=== PATIENT | male | born 1980 | race African-American/Black ===

== ENCOUNTER 2019-03-17 10:29 | Inpatient (IN) | payer OTHER ==
[~2019-03-17] VITALS: Ht 180.3 cm; Wt 86.4 kg
[2019-03-17 11:14] LABS: BASO % 0.7 % (0.0-1.0); HEMATOCRIT 43.1 % (42.0-52.0); HEMOGLOBIN 14.6 g/dl (13.5-17.5); LYMPH # 1.2 10^3/uL (1.5-5.0); LYMPH % 27.5 % (24.0-44.0); MEAN CORPUSCULAR HEMOGLOBIN 27.9 pg (27.0-33.0); MEAN CORPUSCULAR HGB CONC 33.9 g/dl (32.0-36.5); MEAN CORPUSCULAR VOLUME 82.4 fl (80.0-96.0); MONO # 0.4 10^3/uL (0.0-0.8); MONO % 9.8 % (0.0-5.0); NEUTROPHILS # 2.7 10^3/uL (1.5-8.5); NEUTROPHILS % 61.8 % (36.0-66.0); PLATELET COUNT, AUTOMATED 217 10^3/uL (150-450); RED BLOOD COUNT 5.23 10^6/uL (4.30-6.10); WHITE BLOOD COUNT 4.3 10^3/uL (4.0-10.0)
[2019-03-17] MEDS ORDERED: NS 1,000 ML IV ONE ×2 (11:45→12:45)
[2019-03-17] MEDS ORDERED: ONDANSETRON 4MG/2ML VIAL (J2405) IV ONE (11:45)
[2019-03-17 11:54] LABS: ACETAMINOPHEN LEVEL < 2.0 UG/ML (10.0-30.0); ALBUMIN 4.4 GM/DL (3.2-5.2); ALT/SGPT 23 U/L (12-78); BILIRUBIN,DIRECT 0.2 MG/DL (0.0-0.2); BILIRUBIN,TOTAL 0.4 MG/DL (0.2-1.0); BLOOD UREA NITROGEN 9 MG/DL (7-18); CALCIUM LEVEL 9.9 MG/DL (8.5-10.1); CARBON DIOXIDE LEVEL 26 MEQ/L (21-32); CHLORIDE LEVEL 100 MEQ/L (98-107); CPK CREATINE PHOSPHOKINASE 508 U/L (39-308); CREATININE FOR GFR 1.17 MG/DL (0.70-1.30); ETHYL ALCOHOL (ETHANOL) < 0.003 % (0.000-0.010); GLOMERULAR FILTRATION RATE > 60.0 (>60); GLUCOSE, FASTING 120 MG/DL (70-100); POTASSIUM SERUM 3.4 MEQ/L (3.5-5.1); SALICYLATE LEVEL < 1.7 MG/DL (5.0-30.0); SODIUM LEVEL 136 MEQ/L (136-145); TOTAL PROTEIN 8.2 GM/DL (6.4-8.2)
[2019-03-17 12:25] LABS: AMPHETAMINES LEVEL URINE NEGATIVE (NEGATIVE); BARBITURATES URINE NEGATIVE (NEGATIVE); BENZODIAZEPINES URINE NEGATIVE (NEGATIVE); CANNABINOIDS URINE NEGATIVE (NEGATIVE); COCAINE METABOLITE URINE NEGATIVE (NEGATIVE); METHADONE URINE NEGATIVE (NEGATIVE); OPIATES URINE NEGATIVE (NEGATIVE); PHENCYCLIDINE URINE NEGATIVE (NEGATIVE)
[2019-03-17 12:29] LABS: MAGNESIUM LEVEL 1.6 MG/DL (1.8-2.4)
[2019-03-17] MEDS ORDERED: MAG SULF 1GM/100ML (MAG RUN) 1 GM in IV 1 EA IV ONE (13:00)
[2019-03-17] MEDS ORDERED: ONDANSETRON 4MG/2ML VIAL (J2405) IV PRN (14:00)
--- NOTE | 2019-03-17 14:13 | HPEPDOC ---
General Date of Admission 03/17/19 Date of Service: Mar 17, 2019 Chief Complaint The patient is a 38-year-old male admitted with a reason for visit of Overdose. History of Present Illness This is a 38 years old -[place] man from [facility] with a history of substance abuse was brought to ED as patient wanted a chem himself and donate his organs. Patient took at least 30 tablets of naltrexone 50 mg and Effexor 150 mg . During my examination, patient is sedated in ED, unable to get medical history of present desires on this calling his name but then drifts back to sleep, in no apparent cardiorespiratory distress Allergies Coded Allergies: No Known Allergies (Unverified , 03/17/19) Past Medical History Medical History Depression and substance abuse Surgical History None Social History * Smoker: Denies Alcohol: heavy Drugs: other (unknown drugs) A-FIB/CHADSVASC A-FIB History Current/History of A-Fib/PAF?: No Review of Systems Constitutional: Reports: Other (, unable to obtained review of systems as patient is sedated) Physical Examination Eye Exam: Positive: PERRLA ENT Exam: Positive: Atraumatic, Mucous membr. moist/pink Neck Exam: Positive: Supple Chest Exam: Positive: Clear to auscultation, Normal air movement Heart Exam: Positive: Rate Normal, Normal S1, Normal S2 Abdomen Exam: Positive: Soft, Tenderness Extremity Exam: Positive: Normal pulses Skin Exam: Positive: Nl turgor and temperature Neuro Exam: Positive: Other (, unable to neuro exam but moves all his extremities) Psych Exam: Positive: Other (. Unable to psych exam secondary to sedation) Vital Signs Vital Signs Date Time Temp Pulse Resp B/P (MAP) Pulse Ox O2 Delivery O2 Flow Rate FiO2 03/17/19 13:30 97 160/82 (108) 97 03/17/19 10:43 97.9 18 Room Air Laboratory Data Labs 24H Laboratory Tests 2 03/17/19 11:01: Immature Granulocyte % (Auto) 0.2, Neutrophils (%) (Auto) 61.8, Lymphocytes (%) (Auto) 27.5, Monocytes (%) (Auto) 9.8H, Eosinophils (%) (Auto) 0.0, Basophils (%) (Auto) 0.7, Neutrophils # (Auto) 2.7, Lymphocytes # (Auto) 1.2L, Monocytes # (Auto) 0.4, Eosinophils # (Auto) 0.0, Basophils # (Auto) 0.0, Nucleated Red Blood Cells % (auto) 0.0, Anion Gap 10, Glomerular Filtration Rate > 60.0, Calcium Level 9.9, Magnesium Level 1.6L, Total Bilirubin 0.4, Direct Bilirubin 0.2, Aspartate Amino Transf (AST/SGOT) 32, Alanine Aminotransferase (ALT/SGPT) 23, Alkaline Phosphatase 56, Total Creatine Kinase 508H, Total Protein 8.2, Albumin 4.4, Albumin/Globulin Ratio 1.16, Thyroid Stimulating Hormone (TSH) 2.550, Salicylates Level < 1.7L, Acetaminophen Level < 2.0L, Ethyl Alcohol Level < 0.003 03/17/19 11:45: Urine Opiates Screen NEGATIVE, Urine Methadone Screen NEGATIVE, Urine Nelida turates Screen NEGATIVE, Urine Phencyclidine Screen NEGATIVE, Urine Amphetamines Screen NEGATIVE, Urine Benzodiazepines Screen NEGATIVE, Urine Cocaine Metabolite Screen NEGATIVE, Urine Cannabinoids Screen NEGATIVE 03/17/19 13:14: Bedside Glucose (Misc Panel) 96 CBC/BMP Laboratory Tests 03/17/19 11:01 Problems (1) Overdose Status: Acute Problem Text: Patient took approximately 30 tablets of naltrexone 50 mg and Effexor 150 mg. Patient is clinically stable vital signs are stable. His laboratory work including CBC, CMP are normal except potassium is 3.4 CK is 508 and alcohol less than 0.003 Poison control was called and was advised to monitor patient for 12 hours before discharge Patient will be admitted to ICU for further care Cardiac and continuous pulse ox monitor IV fluid normal saline with 20 mEq of KCl at 100 mL per hour A.m. labs EKG in a.m. Will request psych consult in a.m. to transfer patient to inpatient mental health mental health unit DVT prophylaxis with Lovenox Diet regular Activity as tolerated (2) Suicidal ideation Status: Acute Problem Text: Will call psychiatry consult in a.m. and transfer patient to inpatient mental health unit further intervention as per psych (3) Depression Status: Chronic Problem Text: As per psych Plan / VTE VTE Prophylaxis Ordered?: Yes YOANA JEFFERSON MD Mar 17, 2019 14:13
[2019-03-17] MEDS ORDERED: NALT50TA4 PO (14:15)
[2019-03-17] MEDS ORDERED: VENL150C43 PO (14:15)
[2019-03-17 15:02] VITALS: BP 165/88
[2019-03-17] MEDS: KCL 20MEQ in NS 1000ML 1,000 ML IV SCH (15:07)
[2019-03-17 16:00] VITALS: BP 157/84
[2019-03-17 17:00] VITALS: BP 160/86
[2019-03-17 20:00] VITALS: BP 148/89
[2019-03-17 23:49] VITALS: BP 156/92
[2019-03-18] VITALS (14 sets, daily range): BP systolic 120–164; BP diastolic 58–97
[2019-03-18] MEDS: LORazepam 2 MG/ML VIAL (J2060) IV PRN ×2 (00:19→20:27)
[2019-03-18] MEDS: KCL 20MEQ in NS 1000ML 1,000 ML IV SCH (00:20)
[2019-03-18] MEDS ORDERED: levETIRAcetam INJection 1,000 MG in D5W 100 ML IV ONE (00:30)
[2019-03-18] MEDS ORDERED: LORazepam 2 MG/ML VIAL (J2060) IV PRN (00:30)
[2019-03-18 04:57] LABS: HEMATOCRIT 45.1 % (42.0-52.0); HEMOGLOBIN 14.6 g/dl (13.5-17.5); MEAN CORPUSCULAR HEMOGLOBIN 26.8 pg (27.0-33.0); MEAN CORPUSCULAR HGB CONC 32.4 g/dl (32.0-36.5); MEAN CORPUSCULAR VOLUME 82.9 fl (80.0-96.0); PLATELET COUNT, AUTOMATED 194 10^3/uL (150-450); RED BLOOD COUNT 5.44 10^6/uL (4.30-6.10); WHITE BLOOD COUNT 8.4 10^3/uL (4.0-10.0)
[2019-03-18 05:25] LABS: ALBUMIN 3.6 GM/DL (3.2-5.2); ALT/SGPT 19 U/L (12-78); BILIRUBIN,TOTAL 0.7 MG/DL (0.2-1.0); BLOOD UREA NITROGEN 6 MG/DL (7-18); CALCIUM LEVEL 8.2 MG/DL (8.5-10.1); CARBON DIOXIDE LEVEL 27 MEQ/L (21-32); CHLORIDE LEVEL 106 MEQ/L (98-107); CPK CREATINE PHOSPHOKINASE 416 U/L (39-308); GLOMERULAR FILTRATION RATE > 60.0 (>60); GLUCOSE, FASTING 103 MG/DL (70-100); MAGNESIUM LEVEL 2.3 MG/DL (1.8-2.4); POTASSIUM SERUM 3.6 MEQ/L (3.5-5.1); SODIUM LEVEL 139 MEQ/L (136-145); TOTAL PROTEIN 7.6 GM/DL (6.4-8.2)
[2019-03-18] MEDS: ENOXAPARIN 40 MG/0.4 ML SYRINGE (J1650) SC SCH (08:11)
[2019-03-18] MEDS: ACETAMINOPHEN TAB 650MG DOSE (2X325MG) PO PRN ×2 (08:46→16:44)
--- NOTE | 2019-03-18 10:23 | IPNPDOC ---
Subjective Date Seen The patient was seen on 03/18/19. Subjective Chief Complaint/HPI Patient is comfortable in no apparent distress. Offers no new complaints. [facility] called and informed that patient is a human coronavirus positive on nasal swab on his last visit from urgent care. Patient is asymptomatic. No flulike symptoms, no body aches. No fever, infectious control was informed and they've seen the patient but did not recommend any preventative measures and is a human type coronavirus. General: Denies: ROS Unobtainable, Chills, Night Sweats, Fatigue, Malaise, Normal Appetite, Other Symptoms Constitutional: Denies: Chills, Fever, Malaise, Night Sweats, Weakness, Fat igue, Weight Loss, Lethargy, Other Eyes: Denies: Pain, Vision change, Conjunctivae inflammation, Eyelid inflammation, Redness, Other Pulmonary: Denies: Dyspnea, Cough, Pleuritic Chest Pain, Other Symptoms Cardiovascular: Denies: Chest Pain, Palpitations, Orthopnea, Paroxysmal Noc. Dyspnea, Edema, Lt Headedness, Other Symptoms Gastrointestinal: Denies: Nausea, Vomiting, Abdominal Pain, Diarrhea, Constipation, Melena, Hematochezia, Other Symptoms Musculoskeletal: Denies: Neck Pain, Back Pain, Shoulder Pain, Arm Pain, Hand Pain, Leg Pain, Foot Pain, Joint Pain, Muscle Pain, Spasms, Other Symptoms Neurological: Denies: Weakness, Numbness, Incoordination, Change in speech, Confusion, Seizures, Other Symptoms Objective Physical Examination ENT Exam: Positive: Atraumatic, Mucous membr. moist/pink Neck Exam: Positive: Supple Chest Exam: Positive: Clear to auscultation, Normal air movement Heart Exam: Positive: Rate Normal, Normal S1, Normal S2 Abdomen Exam: Positive: Normal bowel sounds, Soft, Tenderness Extremity Exam: Positive: Normal pulses Skin Exam: Positive: Nl turgor and temperature Neuro Exam: Positive: Other (, unable to neuro exam but moves all his extremities) Psych Exam: Positive: Other (. Unable to psych exam secondary to sedation) Assessment /Plan Problems (1) Suicidal ideation Status: Acute Problem Text: Dr. Bradley was called and discussed case discussed with her Patient has committed a suicidal attempt and possibly will be transferred to inpatient mental health unit for further care From the psych meds as per Dr. Bradley (2) Depression Status: Chronic Problem Text: As per psych (3) Overdose Status: Acute Problem Text: Patient was a placement ICU for observation Patient is clinically stable in no apparent distress and medically clear for discharge to inpatient mental health unit No further intervention at the present time, QTC (405) essentially within normal limits Plan/VTE VTE Prophylaxis Ordered?: Yes VS, I&O, 24H, Fishbone Vital Signs/I&O Vital Signs Date Time Temp Pulse Resp B/P (MAP) Pulse Ox O2 Delivery O2 Flow Rate FiO2 03/18/19 09:01 102 141/79 (99) 91 Room Air 03/18/19 08:00 100.7 20 03/18/19 00:22 2.0 I&O- Last 24 Hours up to 6 AM 03/18/19 06:00 Intake Total 2300 ml Output Total 1425 ml Balance 875 ml Laboratory Data 24H LABS Laboratory Tests 2 03/17/19 11:01: Immature Granulocyte % (Auto) 0.2, Neutrophils (%) (Auto) 61.8, Lymphocytes (%) (Auto) 27.5, Monocytes (%) (Auto) 9.8H, Eosinophils (%) (Auto) 0.0, Basophils (%) (Auto) 0.7, Neutrophils # (Auto) 2.7, Lymphocytes # (Auto) 1.2L, Monocytes # (Auto) 0.4, Eosinophils # (Auto) 0.0, Basophils # (Auto) 0.0, Nucleated Red Blood Cells % (auto) 0.0, Anion Gap 10, Glomerular Filtration Rate > 60.0, Calcium Level 9.9, Magnesium Level 1.6L, Total Bilirubin 0.4, Direct Bilirubin 0.2, Aspartate Amino Transf (AST/SGOT) 32, Alanine Aminotransferase (ALT/SGPT) 23, Alkaline Phosphatase 56, Total Creatine Kinase 508H, Total Protein 8.2, Albumin 4.4, Albumin/Globulin Ratio 1.16, Thyroid Stimulating Hormone (TSH) 2.550, Salicylates Level < 1.7L, Acetaminophen Level < 2.0L, Ethyl Alcohol Level < 0.003 03/17/19 11:45: Urine Opiates Screen NEGATIVE, Urine Methadone Screen NEGATIVE, Urine Barbiturates Screen NEGATIVE, Urine Phencyclidine Screen NEGATIVE, Urine Amphetamines Screen NEGATIVE, Urine Benzodiazepines Screen NEGATIVE, Urine Cocaine Metabolite Screen NEGATIVE, Urine Cannabinoids Screen NEGATIVE 03/17/19 13:14: Bedside Glucose (Misc Panel) 96 03/18/19 00:19: Bedside Glucose (Misc Panel) 89 03/18/19 04:47: Nucleated Red Blood Cells % (auto) 0.0, Anion Gap 6L, Glomerular Filtration Rate > 60.0, Calcium Level 8.2#L, Magnesium Level 2.3, Total Bilirubin 0.7#, Aspartate Amino Transf (AST/SGOT) 22, Alanine Aminotransferase (ALT/SGPT) 19, Alkaline Phosphatase 52, Total Creatine Kinase 416H, Total Protein 7.6, Albumin 3.6, Albumin/Globulin Ratio 0.90L CBC/BMP Laboratory Tests 03/17/19 11:01 03/18/19 04:47 YOANA JEFFERSON MD Mar 18, 2019 10:23
[2019-03-18] MEDS ORDERED: levETIRAcetam INJection 500 MG in D5W MINI-BAG PLUS 100 ML IV SCH (12:00)
--- NOTE | 2019-03-18 14:51 | ECGEPIP ---
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
--- NOTE | 2019-03-18 15:58 | MHCRPDOC ---
[facility] Consultation Consultation DATE OF CONSULTATION: 03/18/19 CONSULTATION REQUESTED BY: Dr. Jeffery REASON FOR CONSULTATION: s/p OD RELEVANT HISTORY: Per medical admit note: "This is a 38 years old -French man from [facility] with a history of substance abuse was brought to ED as patient wanted a kill himself and donate his organs. Patient took at least 30 tablets of naltrexone 50 mg and Effexor 150 mg. During my examination, patient is sedated in ED, unable to get medical history of present desires on this calling his name but then drifts back to sleep, in no apparent cardiorespiratory distress" Pt seen and states he took a handful of pills as an OD to harm himself but not kill himself b/c he is upset that he is being Chaptered out of the and loosing his benefits he was hoping to give his children after he got 2 DUIs even thought he passed SUDSE within [facility] and states he's been sober since. He denies SI, SI intent or plan currently. States he was prescribed pills at [facility] (effexor xr and naltrexone) that he stopped taking several months ago and does not want to restart them. He is evasive at times due to what appears disinterest with being interviewed. Admits he regrets his OD. Agrees to only attend groups with admission [facility] and states he doesn't want any meds and doesn't think they help. Denies HI, hallucinations, delusions. PAST PSYCHIATRIC HISTORY: alcohol abuse (used to drink a pint of liquor daily, passed SUDSE in May he states) prescribed effexor xr and naltrexone outpatient denies history of SA PAST MEDICAL HISTORY: human coronavirus positive but asymptomatic according to medical team FAMILY HISTORY: noncontributory PERSONAL AND SOCIAL HISTORY: The patient was born and raised in [facility] came [place] the [place] after he his who is a [place] citizen Resides in: [place] Marital Status: with 2 kids that live with is ex- in [place] Education: college education in finance, wants to work for the [employer] in the future Employment: [employer] SUBSTANCE ABUSE HISTORY: Alcohol - used to drink a pint of liquor daily, passed SUDSE in May he states, and sober since (bal neg on admission) LEGAL HISTORY: 2 DUIs in past MENTAL STATUS EXAMINATION: Patient is a 38-year old male, who is lying in bed in hospital gown uninterested in talking with me and attempting to be evasive at times Speech is soft, reg rate Language skills are Kosovan Accent but good Thought processes including: linear, logical Thought content: Denies SI/HI, hallucinations, delusions. Abstract reasoning, and computation: intact Description of associations: appropriate Description of abnormal or psychotic thoughts: denies Judgment: poor Insight: poor Orientation to x3 Recent and remote memory: intact Attention span and concentration: good Language: appropriate Fund of knowledge:average Mood: "ok" Affect: dysthymic, uninterested DIAGNOSIS: 1. Depression Unspecified 2. hx alcohol use d/o 3. r/o antisocial personality d/o PLAN: 1. admit to [facility] Vital Signs Vital Signs Date Time Temp Pulse Resp B/P (MAP) Pulse Ox O2 Delivery O2 Flow Rate FiO2 03/18/19 09:01 102 141/79 (99) 91 Room Air 03/18/19 08:00 100.7 20 03/18/19 00:22 2.0 Laboratory Data 24H Labs Laboratory Tests 2 03/18/19 00:19: Bedside Glucose (Misc Panel) 89 03/18/19 04:47: Nucleated Red Blood Cells % (auto) 0.0, Anion Gap 6L, Glomerular Filtration Rate > 60.0, Calcium Level 8.2#L, Magnesium Level 2.3, Total Bilirubin 0.7#, Aspartate Amino Transf (AST/SGOT) 22, Alanine Aminotransferase (ALT/SGPT) 19, Alkaline Phosphatase 52, Total Creatine Kinase 416H, Total Protein 7.6, Albumin 3.6, Albumin/Globulin Ratio 0.90L, Prolactin 7.2 Home Medications Current Medications Current Medications Medications (Trade) Dose Ordered Sig/Cheli Route PRN Reason Start Time Stop Time Status Last Admin Dose Admin Acetaminophen (Tylenol Tab) 650 mg Q6HP PRN PO PAIN / FEVER 03/18/19 08:45 03/18/19 08:46 Enoxaparin Sodium (Lovenox) 40 mg DAILY SC 03/18/19 09:00 03/18/19 08:11 Home Med (Med Rec Complete!) ASDIRECTED XX 03/17/19 14:15 03/17/19 14:19 DC Levetiracetam 500 mg/Dextrose 105 ml @ 420 mls/hr Q12H IV 03/18/19 12:00 03/18/19 10:25 DC Lorazepam (Ativan) 1 mg Q6HP PRN IV ANXIETY/AGITATION 03/17/19 14:00 03/18/19 00:19 Lorazepam (Ativan) 2 mg Q1HP PRN IV SEIZURES 03/18/19 00:30 Ondansetron HCl (ZOFRAN INJection) 4 mg Q4HP PRN IV NAUSEA OR VOMITING 03/17/19 14:00 Potassium Chloride/Sodium Chloride 1,000 ml @ 100 mls/hr Q10H IV 03/17/19 14:00 03/18/19 10:24 DC 03/18/19 00:20 Scheduled Naltrexone HCl (Naltrexone HCl) 50 Mg Tablet, 50 MG PO DAILY, (Reported) Venlafaxine HCl (Venlafaxine HCl ER) 150 Mg Cap.er.24h, 150 MG PO DAILY, (Reported) Allergies Coded Allergies: No Known Allergies (Unverified , 03/17/19) LON STEVENS DO Mar 18, 2019 2:14 pm
[2019-03-18] MEDS ORDERED: ACET1TAB55 PO (16:30)
--- NOTE | 2019-03-18 16:35 | DS.PDOC ---
Discharge Summary General Date of Admission Mar 17, 2019 at 13:47 Date of Discharge 03/18/19 Discharge Summary PROCEDURES PERFORMED DURING STAY: None. ADMITTING DIAGNOSES: 1. Suicidal attempt, depression, prescription drug overdose. DISCHARGE DIAGNOSES: 1. Suicidal attempt, depression, prescription drug overdose. COMPLICATIONS/CHIEF COMPLAINT: Depression Overdose Suicidal Ideation. HISTORY OF PRESENT ILLNESS: This is a 38 years old -[place] man from [facility] with a history of substance abuse was brought to ED as patient wanted a chem himself and donate his organs. Patient took at least 30 tablets of naltrexone 50 mg and Effexor 150 mg . During my examination, patient is sedated in ED, unable to get medical history of present desires on this calling his name but then drifts back to sleep, in no apparent cardiorespiratory distress. HOSPITAL COURSE: Patient was admitted to MICU for close observation. He was started on IV fluids, Ativan when necessary, Tylenol when necessary, Zofran when necessary. Pain control was called from a emergency room and had advised 12 hours of observation. Patient's QTC was 409 on his last EKG done this morning. Patient remained asymptomatic psych consult with Dr. Bradley was called, patient was seen by Dr. Bradley and recommended admission to inpatient mental health unit. All paperwork has been completed and patient will be discharged to inpatient mental health unit for further psychiatric care.. DISCHARGE MEDICATIONS: Please see below. ALLERGIES: Please see below. PHYSICAL EXAMINATION ON DISCHARGE: VITAL SIGNS: Please see below. GENERAL: Within normal limits HEENT: Gill extraocular muscles intact NECK: Supple, no JVD, no lymphadenopathy CARDIOVASCULAR EXAMINATION: S1, S2, regular RESPIRATORY EXAMINATION: Clear to A&P ABDOMINAL EXAMINATION: , Soft, nontender, bowel sounds and organomegaly EXTREMITIES: No clubbing, cyanosis, edema SKIN: Within normal limits NEUROLOGICAL EXAMINATION: . No focal motor sensory deficit PSYCHIATRIC EXAMINATION: Within normal limits LABORATORY DATA: Please see below. IMAGING: None PROGNOSIS: Good ACTIVITY: As tolerated. DIET: As tolerated DISCHARGE PLAN: As tolerated DISPOSITION: . [facility] DISCHARGE INSTRUCTIONS: 1. As per discharge instructions. ITEMS TO FOLLOWUP ON ON OUTPATIENT: 1. Follow with inpatient psych in [facility]. DISCHARGE CONDITION: Stable. TIME SPENT ON DISCHARGE: 38 minutes. Vital Signs/I&Os Vital Signs Date Time Temp Pulse Resp B/P (MAP) Pulse Ox O2 Delivery O2 Flow Rate FiO2 03/18/19 14:00 99.5 2/5/20 09:01 102 141/79 (99) 91 Room Air 03/18/19 08:00 20 03/18/19 00:22 2.0 I&O- Last 24 Hours up to 6 AM 03/18/19 06:00 Intake Total 2300 ml Output Total 1425 ml Balance 875 ml Laboratory Data Labs 24H Laboratory Tests 2 03/18/19 00:19: Bedside Glucose (Misc Panel) 89 03/18/19 04:47: Nucleated Red Blood Cells % (auto) 0.0, Anion Gap 6L, Glomerular Filtration Rate > 60.0, Calcium Level 8.2#L, Magnesium Level 2.3, Total Bilirubin 0.7#, Aspartate Amino Transf (AST/SGOT) 22, Alanine Aminotransferase (ALT/SGPT) 19, Alkaline Phosphatase 52, Total Creatine Kinase 416H, Total Protein 7.6, Albumin 3.6, Albumin/Globulin Ratio 0.90L, Prolactin 7.2 CBC/BMP Laboratory Tests 03/18/19 04:47 FSBS Laboratory Tests Test 03/18/19 00:19 Range/Units Bedside Glucose (Misc Panel) 89 70-105 MG/DL Discharge Medications Scheduled PRN Acetaminophen (Acetaminophen) 325 Mg Tablet, 650 MG PO Q6HP PRN for PAIN / FEVER Allergies Coded Allergies: No Known Allergies (Unverified , 03/17/19) YOANA JEFFERSON MD Mar 18, 2019 16:35
[2019-03-19 04:43] VITALS: BP 138/89
[2019-03-19 08:00] VITALS: BP 161/91
[2019-03-19] MEDS: ENOXAPARIN 40 MG/0.4 ML SYRINGE (J1650) SC SCH (08:11)
[2019-03-19] MEDS: ACETAMINOPHEN TAB 650MG DOSE (2X325MG) PO PRN (08:12)
--- NOTE | 2019-03-20 19:56 | ECGEPIP ---
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
== END 2019-03-19 16:25 | DRG 918 ==
LOC: M ED 10:29 → EDBD 10:29 → M ED INP 13:47 → ENRESERVDT 14:00 → ENRESERVTM 14:00 → M ICU 14:55
PROVIDERS: ADMIT Internal Medicine; ATTEND Internal Medicine
DX: T50.7X2A Poisoning by analeptics and opioid receptor antagonists, intentional self-harm, initial encounter (principal); Z79.899 Other long term (current) drug therapy; F32.9 Major depressive disorder, single episode, unspecified

== ENCOUNTER 2019-03-18 16:11 | Inpatient (IN) | payer OTHER ==
[~2019-03-18] VITALS: Ht 180.3 cm; Wt 84.9 kg
[~2019-03-18 16:11] MED LIST: NALT50TA4 PO; VENL150C43 PO
[2019-03-18] MEDS ORDERED: ACET1TAB55 PO (16:30)
[2019-03-18] MEDS ORDERED: MAALOX 30 ML SUSP *UDC PO PRN (16:45)
[2019-03-18] MEDS ORDERED: MOM 30ML SUSPENSION UDC PO PRN (16:45)
[2019-03-18] MEDS ORDERED: NICOTINE 21MG/24HR 1 EA TRANSDERMAL TD PRN (16:45)
[2019-03-19] MEDS ORDERED: MAALOX 30 ML SUSP *UDC PO PRN (16:15)
[2019-03-19] MEDS ORDERED: MOM 30ML SUSPENSION UDC PO PRN (16:15)
[2019-03-19] MEDS ORDERED: traZODone 50 MG TAB PO PRN (16:15)
[2019-03-19 16:30] VITALS: BP 130/92
[2019-03-19] MEDS: ACETAMINOPHEN TAB 650MG DOSE (2X325MG) PO PRN (22:25)
[2019-03-20 06:01] VITALS: BP 114/88
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
--- NOTE | 2019-03-20 13:53 | HPEPDOC ---
General Date of Admission Mar 19, 2019 at 16:30 Date of Service: Mar 20, 2019 Attending Physician: MIMA MOORE MD Chief Complaint The patient is a 38-year-old male admitted with a reason for visit of Unspecified Depression. Source: Patient Exam Limitations: No limitations Timing/Duration: Other Associated Symptoms: Other History of Present Illness 38 yo man who is active in the with a remote history of a traumatic fall c/b occasional headaches response to Tylenol and patient reported recent history of diagnosis of pericarditis in [facility]? for which he was placed on a medication that begins with C? (colchicine?) with no recent history of chest pain, palpitations, SOB or extremity swelling, as well as chart history of substance use disorder (patient denies) who is admitted to the [facility] after an intentional overdose of naltrexone and Effexor in the setting of social stressors. He otherwise reports no other significant medical. Initial evaluation included, normal CBC, CMP, CK is 508 and alcohol less than 0.003. Poison control was called and was advised to monitor patient for 12 hours before discharge and he was briefly admitted for monitoring in the ICU and given IVF fluids after which he was evaluated and admitted to the [facility]. Home Medications Scheduled PRN Acetaminophen (Acetaminophen) 325 Mg Tablet, 650 MG PO Q6HP PRN for PAIN / FEVER Allergies Coded Allergies: No Known Allergies (Unverified , 03/17/19) Past Medical History Medical History [facility] Depression chronic headaches Surgical History None Family History Significant Family History: No pertinent family hx Social History * Smoker: Denies Alcohol: occationally Drugs: denies Recent Travel/Sick Contacts: Denies: Recent travel, Recent sick contacts Psychosocial History: Depression A-FIB/CHADSVASC A-FIB History Current/History of A-Fib/PAF?: No Current PO Anticoag Therapy: No Age/Risk Factor Scoring CHADSVASC: CHADSVASC Response (Comments) Value Age Risk Factor Age < 65 years old 0 Gender Risk Factor Male 0 Hx of CHF No 0 Hx of HTN No 0 Hx of Stroke/TIA/or VTE No 0 Hx of Diabetes No 0 Hx of Vascular Disease No 0 Total 0 Treatment Treatment ordered: NONE Reason Anticoagulant not given: Not indicated/[id number] Review of Systems Constitutional: Denies: Chills, Fever, Night Sweats Eyes: Denies: Pain, Vision change ENT: Denies: Head Aches, Ear Pain, Dysphagia Skin: Denies: Rash, Lesions, Breakdown Pulmonary: Denies: Dyspnea, Cough Cardiovascular: Denies: Chest Pain, Palpitations, Orthopnea, Paroxysmal Noc. Dyspnea, Lt Headedness Gastrointestinal: Denies: Nausea, Vomiting, Abdominal Pain, Diarrhea Genitourinary: Denies: Dysuria, Frequency, Incontinence, Retention Hematologic: Denies: Bruising, Bleeding Excessively Endocrine: Denies: Polydipsia, Polyphagia, Polyuria, Heat Intolerance, Cold Intolerance, Other Endocrine Sx Musculoskeletal: Denies: Neck Pain, Back Pain, Shoulder Pain, Arm Pain, Hand Pain, Leg Pain, Foot Pain, Joint Pain, Muscle Pain, Spasms, Other Symptoms Neurological: Denies: Weakness, Numbness, Change in speech, Confusion Psych: Reports: Mood Normal; Denies: Depression, Memory Issues Physical Examination General Exam: Positive: Alert, No Acute Distress Eye Exam: Positive: PERRLA, Conjunctiva & lids normal, EOMI; Negative: Sclera icteric ENT Exam: Positive: Atraumatic, Mucous membr. moist/pink, Pharynx Normal Neck Exam: Positive: Supple; Negative: JVD, thyromegaly Chest Exam: Positive: Clear to auscultation, Normal air movement Heart Exam: Positive: Rate Normal, Regular Rhythm, Normal S1, Normal S2; Negative: Murmurs, Rubs Telemetry: Positive: No significant arrhythmia Abdomen Exam: Positive: Normal bowel sounds, Soft; Negative: Tenderness, Hepatospenomegaly Extremity Exam: Positive: Normal pulses; Negative: Clubbing, Cyanosis, Edema Skin Exam: Positive: Nl turgor and temperature; Negative: Breakdown, Lesion Neuro Exam: Positive: Normal Gait, Normal Speech, Cranial Nerves 3-12 NL Psych Exam: Positive: Mental status NL, Mood NL, Oriented x 3 Vital Signs Vital Signs Date Time Temp Pulse Resp B/P (MAP) Pulse Ox O2 Delivery O2 Flow Rate FiO2 03/20/19 06:01 99.3 74 18 114/88 (97) 03/19/19 16:30 95 Assessment/Plan 38 yo man who is active in the with a remote history of a traumatic fall c/b occasional headaches response to Tylenol and patient reported recent history of diagnosis of pericarditis in [facility]? for which he was placed on a medication that begins with C? (colchicine?) with no recent history of chest pain, palpitations, SOB or extremity swelling, as well as chart history of substance use disorder (patient denies) who is admitted to the [facility] after an intentional overdose of naltrexone and Effexor in the setting of social stressors, now admitted to the [facility] with medicine consulted for medical evaluation. Plan: Chronic headaches: -Continue PRN tylenol per baseline, already ordered. -Recommended for patient to discuss his headaches with his PCP to investigate possible TBI since they began after his remote traumatic fall Intentional overdose: -Was monitored in the ICU and cleared, clinically stable at this time -Psychiatry managing depression and suicidality Prior history of pericarditis per patient: -Unclear if colchicine was the medication he was on and for long he was on it and the target time frame. For now asymptomatic with normal exam without rubs or murmurs and euvolemic while on PRN tylenol and ibuprofen. -may follow up with PCP as an outpatient Medicine will sign off at this time. Plan / VTE VTE Prophylaxis Ordered?: No VTE Exclusion Mechanical Proph: Low Risk for VTE VTE Exclusion Pharmacological: At Low Risk for VTE MIMA MOORE MD Mar 20, 2019 13:53
[2019-03-20 16:21] VITALS: BP 142/84
[2019-03-20] MEDS: ACETAMINOPHEN TAB 650MG DOSE (2X325MG) PO PRN (17:16)
[2019-03-20] MEDS: PRAZOSIN 1 MG CAP PO SCH (20:54)
[2019-03-20] MEDS: traZODone 50 MG TAB PO PRN (20:54)
[2019-03-20] MEDS: QUEtiapine FUMARATE 25 MG TAB PO SCH (20:54)
[2019-03-20] MEDS: IBUPROFEN 400 MG TAB PO PRN (20:55)
[2019-03-21 05:52] VITALS: BP 152/91
--- NOTE | 2019-03-21 09:38 | MHIPNPDOC ---
[facility] Progress Note Progress Note DATE OF SERVICE: 03/21/19 HISTORY: The patient a 38-year-old man presents after a suicide attempt overdose on a combination of effexor and naltrexone after reportedly being told that he might be from the . He has multiple stressors and reports that for the last several days, he is depressed, hopeless and lost interest and very little motivation to engage. The patient reports a history of trauma when he lived [place]. Reports hypervigilance, intrusive thoughts, nightmares and partial flashbacks as well as negative cognition. The patient reports that he feels that he had survived for "a reason," struggles with significant depression for the last several days prior to OD. VITAL SIGNS: See below. NEW TEST RESULTS:See below. CURRENT MEDICATIONS: See below. MENTAL STATUS EXAMINATION: General: Well dressed with good hygiene Speech: Somewhat monotone at times. Thought processes: Linear and logical MSK: Smooth and coordinated gait, no signs of tremors or involuntary orofacial movements Thought content: Hopelessness. Abstract reasoning, and computation: Intact Description of associations: Intact Description of abnormal or psychotic thoughts: Denies any suicidal or homicidal ideation. Denies any auditory or visual hallucinations. Does not appear to be responding to internal stimuli. Does not appear to be endorsing any bizarre or paranoid ideation. Judgment: Poor. Insight: Poor. Orientation: Alert and orientated 3 Cognition: Grossly normal Recent and remote memory: Intact Attention span and concentration: Intact Fund of knowledge: Adequate Mood: "ok" Affect: Severely dysthymic with a restricted range. DIAGNOSES: PTSD, chronic. MDD, mild to severe. Alcohol use disorder, moderate. ASSESSMENT:Pt seen and states that his mood is "ok" and that it's improving slowly with treatment. Continues to regret his recent OD. States he slept well last night. Feels he is tolerating his medications and they're beneficial. He is attending groups and finding them helpful. He denies SI/HI, hallucinations, delusions. Pt feels safe here. MANAGEMENT PLAN: continue Dr. Chu's plan. TIME SPENT: 30 minutes. Vital Signs Vital Signs Date Time Temp Pulse Resp B/P (MAP) Pulse Ox O2 Delivery O2 Flow Rate FiO2 03/21/19 05:52 98.2 62 16 152/91 (111) 03/19/19 16:30 95 Current Medications Current Medications Medications (Trade) Dose Ordered Sig/Cheli Route PRN Reason Start Time Stop Time Status Last Admin Dose Admin Acetaminophen (Tylenol Tab) 650 mg Q6HP PRN PO HEADACHE or DISCOMFORT 03/19/19 16:15 03/20/19 17:16 Al Hydrox/Mg Hydrox/Simethicone (Mylanta) 30 ml Q4HP PRN PO HEARTBURN/INDIGESTION 03/18/19 16:45 Al Hydrox/Mg Hydrox/Simethicone (Mylanta) 30 ml Q4HP PRN PO HEARTBURN/INDIGESTION 03/19/19 16:15 UNV Ibuprofen (Advil) 400 mg Q6HP PRN PO PAIN 03/18/19 16:45 03/20/19 20:55 Magnesium Hydroxide (Milk Of Magnesia) 30 ml DAILYPRN PRN PO CONSTIPATION 03/18/19 16:45 Magnesium Hydroxide (Milk Of Magnesia) 30 ml DAILYPRN PRN PO CONSTIPATION 03/19/19 16:15 UNV Nicotine (Nicoderm Cq 21mg) 1 patch DAILYPRN PRN TD smoking cesssation 03/18/19 16:45 Prazosin HCl (Minipress) 1 mg QHS PO 03/20/19 21:00 03/20/19 20:54 Quetiapine Fumarate (SEROquel) 25 mg QHS PO 03/20/19 21:00 03/20/19 20:54 Trazodone HCl (Desyrel) 50 mg QHSP PRN PO INSOMNIA 03/18/19 16:45 03/20/19 20:54 Trazodone HCl (Desyrel) 50 mg QHSP PRN PO INSOMNIA 03/19/19 16:15 UNV Allergies Coded Allergies: No Known Allergies (Unverified , 03/17/19) LON STEVENS DO Mar 21, 2019 9:38 am
[2019-03-21] MEDS: ACETAMINOPHEN TAB 650MG DOSE (2X325MG) PO PRN ×2 (13:01→21:57)
[2019-03-21 16:14] VITALS: BP 140/82
[2019-03-21] MEDS: QUEtiapine FUMARATE 25 MG TAB PO SCH (22:40)
[2019-03-21] MEDS: PRAZOSIN 1 MG CAP PO SCH (22:41)
[2019-03-21] MEDS: IBUPROFEN 400 MG TAB PO PRN (23:44)
[2019-03-22 06:18] VITALS: BP 130/88
[2019-03-22] MEDS: ACETAMINOPHEN TAB 650MG DOSE (2X325MG) PO PRN (08:18)
--- NOTE | 2019-03-22 09:16 | MHIPNPDOC ---
[facility] Progress Note Progress Note DATE OF SERVICE: 03/22/19 HISTORY:The patient a 38-year-old man presents after a suicide attempt overdose on a combination of effexor and naltrexone after reportedly being told that he might be from the . He has multiple stressors and reports that for the last several days, he is depressed, hopeless and lost interest and very little motivation to engage. The patient reports a history of trauma when he lived [place]. Reports hypervigilance, intrusive thoughts, nightmares and partial flashbacks as well as negative cognition. The patient reports that he feels that he had survived for "a reason," struggles with significant depression for the last several days prior to OD. VITAL SIGNS: See below. NEW TEST RESULTS:See below. CURRENT MEDICATIONS: See below. MENTAL STATUS EXAMINATION: General: Well dressed with good hygiene Speech: less monotone at times. Thought processes: Linear and logical MSK: Smooth and coordinated gait, no signs of tremors or involuntary orofacial movements Thought content: less Hopelessness. Abstract reasoning, and computation: Intact Description of associations: Intact Description of abnormal or psychotic thoughts: Denies any suicidal or homicidal ideation. Denies any auditory or visual hallucinations. Does not appear to be responding to internal stimuli. Does not appear to be endorsing any bizarre or paranoid ideation. Judgment: Poor. Insight: Poor. Orientation: Alert and orientated 3 Cognition: Grossly normal Recent and remote memory: Intact Attention span and concentration: Intact Fund of knowledge: Adequate Mood: "getting better" Affect: dysthymic with a less restricted range. DIAGNOSES: PTSD, chronic. MDD, mild to severe. Alcohol use disorder, moderate. ASSESSMENT:Pt seen and states that his mood is "getting better" and that it's starting to improve more with treatment and start of prazosin and seroquel as his sleep is better. Continues to regret his recent OD. States he slept well last night. Feels he is tolerating his medications and they're beneficial. He is attending groups and finding them helpful. He denies SI/HI, hallucinations, delusions. Pt feels safe here. MANAGEMENT PLAN: continue Dr. Chu's plan. TIME SPENT: 30 minutes. Vital Signs Vital Signs Date Time Temp Pulse Resp B/P (MAP) Pulse Ox O2 Delivery O2 Flow Rate FiO2 2/9/20 06:18 97.9 72 16 130/88 (102) Room Air 03/19/19 16:30 95 Current Medications Current Medications Medications (Trade) Dose Ordered Sig/Cheli Route PRN Reason Start Time Stop Time Status Last Admin Dose Admin Acetaminophen (Tylenol Tab) 650 mg Q6HP PRN PO HEADACHE or DISCOMFORT 03/19/19 16:15 03/22/19 08:18 Al Hydrox/Mg Hydrox/Simethicone (Mylanta) 30 ml Q4HP PRN PO HEARTBURN/INDIGESTION 03/18/19 16:45 Al Hydrox/Mg Hydrox/Simethicone (Mylanta) 30 ml Q4HP PRN PO HEARTBURN/INDIGESTION 03/19/19 16:15 UNV Ibuprofen (Advil) 400 mg Q6HP PRN PO PAIN 03/18/19 16:45 03/21/19 23:44 Magnesium Hydroxide (Milk Of Magnesia) 30 ml DAILYPRN PRN PO CONSTIPATION 03/18/19 16:45 Magnesium Hydroxide (Milk Of Magnesia) 30 ml DAILYPRN PRN PO CONSTIPATION 03/19/19 16:15 UNV Nicotine (Nicoderm Cq 21mg) 1 patch DAILYPRN PRN TD smoking cesssation 03/18/19 16:45 Prazosin HCl (Minipress) 1 mg QHS PO 03/20/19 21:00 03/21/19 22:41 Quetiapine Fumarate (SEROquel) 25 mg QHS PO 03/20/19 21:00 03/21/19 22:40 Trazodone HCl (Desyrel) 50 mg QHSP PRN PO INSOMNIA 03/18/19 16:45 03/20/19 20:54 Trazodone HCl (Desyrel) 50 mg QHSP PRN PO INSOMNIA 03/19/19 16:15 UNV Allergies Coded Allergies: No Known Allergies (Unverified , 03/17/19) LON STEVENS DO Mar 22, 2019 9:16 am
[2019-03-22] MEDS: IBUPROFEN 400 MG TAB PO PRN ×2 (14:44→21:07)
[2019-03-22 16:02] VITALS: BP 134/72
[2019-03-22] MEDS: QUEtiapine FUMARATE 25 MG TAB PO SCH (21:00)
[2019-03-22] MEDS: PRAZOSIN 1 MG CAP PO SCH (21:06)
[2019-03-22] MEDS: traZODone 50 MG TAB PO PRN (21:07)
[2019-03-23 06:38] VITALS: BP 140/75
[2019-03-23] MEDS: IBUPROFEN 400 MG TAB PO PRN ×2 (08:43→14:53)
--- NOTE | 2019-03-23 11:02 | MHIPNPDOC ---
[facility] Progress Note Progress Note Inpatient Progress Note Demetrius Jean MRN: N/A Date of : N/A Date of Service: 03/23/2019 History of Present Illness The patient a 38-year-old man presents after a suicide attempt overdose on a combination of effexor and naltrexone after reportedly being told that he might be seperated from the . He has multiple stressors and reports that for the last several days, he is depressed, hopeless and lost interest and very lit tle motivation to engage. The patient reports a history of trauma when he lived [place]. Reports hypervigilance, intrusive thoughts, nightmares and partial flashbacks as well as negative cognition. The patient reports that he feels that he had survived for "a reason," struggles with significant depression for the last several days prior to OD. Interval History Narrative: Patient is met with. He reports that he is making some progress on the medications, feeling better and ready for discharge. He reports that he finds the Seroquel a bit over-sedated. Affective: The patient reports improved mood, more positive thinking. No loss of interest. Psychotic: The patient denies any. Anxiety: The patient worries but has been coping well. Eating and sleeping behaviors: Normal. Group Attendance: good Medication Side effects: See ROS below Behavioral problems/significant events overnight: Not reported. Staff Report: The patient has become amenable and has good insight Review Of Systems General: Denies fever or appetite changes Cardiovascular: Denies Chest pain or palpations GI: Denies Nausea, vomiting, or bowel changes Respiratory: Denies shortness of breath or cough Neuro: Denies dizziness, tremors Derm: Denies any rashes or pruritus : Denies any dysuria or urinary problems MSK: Denies any muscle tightness or stiffness HEENT: Denies any vision changes or headaches Psychotherapy None on this visit. Vital Signs Reviewed. Mental Status Examination General: Well dressed with good hygiene Speech: Spontaneous and fluid Thought processes: Linear and logical MSK: Smooth and coordinated gait, no signs of tremors or involuntary orofacial movements Thought content: Future orientated Abstract reasoning, and computation: Intact Description of associations: Intact Description of abnormal or psychotic thoughts: Denies any suicidal or homicidal ideation. Denies any auditory or visual hallucinations. Does not appear to be responding to internal stimuli. Does not appear to be endorsing any bizarre or paranoid ideation. Judgment: fair Insight: fair Orientation: Alert and orientated 3 Cognition: Grossly normal Recent and remote memory: Intact Attention span and concentration: Intact Fund of knowledge: Adequate Mood: "okay" Affect: Euthymic with a full range Diagnoses PTSD, chronic. MDD, mild to severe. Alcohol use disorder, moderate. Assessment and Plan PTSD/MDD: Continue prazosin. Will not continue Seroquel on discharge. Discussed with patient additional options for antidepressants versus therapy as well as combination therein. Patient, after discussion of the risks and benefits and alternatives, decides on therapy as his primary treatment. Alcohol use disorder: Discontinue CIWA protocol, as has not been scoring. Disposition Discharge tomorrow to [facility]. Time Spent 15 minutes. Saturday Vital Signs Vital Signs Date Time Temp Pulse Resp B/P (MAP) Pulse Ox O2 Delivery O2 Flow Rate FiO2 03/23/19 08:39 Room Air 03/23/19 06:38 97.6 76 16 140/75 (96) 03/19/19 16:30 95 Current Medications Current Medications Medications (Trade) Dose Ordered Sig/Cheli Route PRN Reason Start Time Stop Time Status Last Admin Dose Admin Acetaminophen (Tylenol Tab) 650 mg Q6HP PRN PO HEADACHE or DISCOMFORT 03/19/19 16:15 03/22/19 08:18 Al Hydrox/Mg Hydrox/Simethicone (Mylanta) 30 ml Q4HP PRN PO HEARTBURN/INDIGESTION 03/18/19 16:45 Al Hydrox/Mg Hydrox/Simethicone (Mylanta) 30 ml Q4HP PRN PO HEARTBURN/INDIGESTION 03/19/19 16:15 UNV Ibuprofen (Advil) 400 mg Q6HP PRN PO PAIN 03/18/19 16:45 03/23/19 08:43 Magnesium Hydroxide (Milk Of Magnesia) 30 ml DAILYPRN PRN PO CONSTIPATION 03/18/19 16:45 Magnesium Hydroxide (Milk Of Magnesia) 30 ml DAILYPRN PRN PO CONSTIPATION 03/19/19 16:15 UNV Nicotine (Nicoderm Cq 21mg) 1 patch DAILYPRN PRN TD smoking cesssation 03/18/19 16:45 Prazosin HCl (Minipress) 1 mg QHS PO 03/20/19 21:00 03/22/19 21:06 Quetiapine Fumarate (SEROquel) 25 mg QHS PO 03/20/19 21:00 03/21/19 22:40 Trazodone HCl (Desyrel) 50 mg QHSP PRN PO INSOMNIA 03/18/19 16:45 03/22/19 21:07 Trazodone HCl (Desyrel) 50 mg QHSP PRN PO INSOMNIA 03/19/19 16:15 UNV Allergies Coded Allergies: No Known Allergies (Unverified , 03/17/19) PATRICIA CAMPOVERDE DO Mar 23, 2019 11:02
[2019-03-23 16:15] VITALS: BP 152/67
[2019-03-23] MEDS: ACETAMINOPHEN TAB 650MG DOSE (2X325MG) PO PRN (20:06)
[2019-03-23] MEDS: QUEtiapine FUMARATE 25 MG TAB PO SCH (21:00)
[2019-03-23] MEDS: traZODone 50 MG TAB PO PRN (21:18)
[2019-03-23 21:19] VITALS: BP 139/87
[2019-03-23] MEDS: PRAZOSIN 1 MG CAP PO SCH (21:19)
[2019-03-24 06:20] VITALS: BP_SYST 108; BP_SYST 157; BP_DIAS 55; BP_DIAS 78
[2019-03-24] MEDS: IBUPROFEN 400 MG TAB PO PRN (08:33)
[2019-03-24] MEDS ORDERED: NICO21PAT TD (10:32)
[2019-03-24] MEDS ORDERED: MINI1CAP PO (10:32)
--- NOTE | 2019-03-24 10:33 | MHDSPDOC ---
[facility] Discharge Summary Discharge Summary DATE OF ADMISSION: Mar 19, 2019 at 16:30 DATE OF DISCHARGE: DISCHARGE DIAGNOSES: 1. . 2. . REASON FOR ADMISSION: CONSULTANTS INVOLVED: TREATMENT AND PROGRESS ON THE UNIT : . HOSPITAL COURSE: DISCHARGE ASSESSMENT: MENTAL STATUS EXAMINATION ON DISCHARGE: Patient is a -year old male, who is . Speech is . Language skills are . Thought processes including: . Thought content: . Abstract reasoning, and computation: . Description of associations: . Description of abnormal or psychotic thoughts: . Judgment: . Insight: . Orientation to . Recent and remote memory: . Attention span and concentration: . Language: . Fund of knowledge: . Mood: . Affect: . MEDICATIONS ON DISCHARGE: - for . - for . - for . PLAN/FOLLOWUP ARRANGEMENTS: . The amount of time spent in the coordination of care for this patient was approximately minutes. Vital Signs/I&Os Vital Signs Date Time Temp Pulse Resp B/P (MAP) Pulse Ox O2 Delivery O2 Flow Rate FiO2 03/24/19 06:20 98.2 76 16 157/78 (104) 03/23/19 16:15 Room Air 03/19/19 16:30 95 Medications Scheduled Prazosin HCl (Minipress) 1 Mg Capsule, 1 MG PO QHS for thought for 7 Days, #7 Scheduled PRN Nicotine (Nicotine Patch) 21 Mg Patch.td24, 1 PATCH TD DAILYPRN PRN for smoking cesssation for 30 Days, #30 Allergies Coded Allergies: No Known Allergies (Unverified , 03/17/19) PATRICIA CAMPOVERDE DO Mar 24, 2019 10:33
== END 2019-03-24 14:20 | disposition home or self-care (01) | DRG 882 ==
LOC: M PSY 03-19 16:30
PROVIDERS: ADMIT Psychiatry & Neurology Psychiatry; ATTEND Psychiatry & Neurology Addiction Medicine
DX: F43.12 Post-traumatic stress disorder, chronic (principal); F32.2 Major depressive disorder, single episode, severe without psychotic features; F10.10 Alcohol abuse, uncomplicated; R51 Headache